=== PATIENT | female | born 1965 | race Caucasian/White ===

== ENCOUNTER 2017-03-13 23:46 | Emergency (ER) | payer OTHER ==
[~2017-03-13] VITALS: Ht 154.9 cm; Wt 63.5 kg
[2017-03-14 01:33] LABS: HEMATOCRIT 39.5 % (37.0-47.0); HEMOGLOBIN 13.6 gm/dL (12.0-15.0); MCH 28.7 pg (26.0-34.0); MCHC 34.5 g/dL (28.0-37.0); MCV 83.1 fL (80.0-100.0); RBC 4.76 mil/uL (4.20-5.00); RDW 13.2 % (10.5-14.5); WBC 6.9 thou/uL (4.0-11.0)
[2017-03-14 01:40] LABS: CALCIUM 9.6 mg/dL (8.5-10.1); CREATININE 0.6 mg/dL (0.6-1.0); POTASSIUM 4.1 mmol/L (3.5-5.1)
[2017-03-14] MEDS ORDERED: NORCO 5-325 TA1 EACH PO (01:56)
[2017-03-14] MEDS ORDERED: NAPROSYN500 MG PO (01:56)
[2017-03-14 02:52] VITALS: BP 150/69
== END 2017-03-14 03:25 | disposition home or self-care (01) ==
LOC: ER 23:46
PROVIDERS: Emergency Medicine
DX: S86.912A Strain of unspecified muscle(s) and tendon(s) at lower leg level, left leg, initial encounter (principal); X58.XXXA Exposure to other specified factors, initial encounter; Y93.01 Activity, walking, marching and hiking; Y92.89 Other specified places as the place of occurrence of the external cause; Y99.9 Unspecified external cause status

== ENCOUNTER 2019-10-12 22:08 | Inpatient (IN) | payer BC, OTHER ==
[~2019-10-12] VITALS: Ht 152.4 cm; Wt 57.2 kg
[~2019-10-12 22:08] MED LIST: NAPROSYN500 MG PO; NORCO 5-325 TA1 EACH PO
[2019-10-12 22:09] VITALS: BP 122/54
[2019-10-12 22:59] LABS: ABSOLUTE NEUTROPHILS 11.3 thou/uL (1.4-8.2); BASOPHILS 0.1 % (0.0-2.0); HEMATOCRIT 51.2 % (37.0-47.0); HEMOGLOBIN 16.9 gm/dL (12.0-15.0); LYMPHOCYTES 6.1 % (24.0-44.0); MCH 28.2 pg (26.0-34.0); MCV 85.5 fL (80.0-100.0); MONOCYTES 5.9 % (1.0-8.0); PLATELET COUNT 283 thou/uL (150-400); POLYS 87.9 % (36.0-66.0); RBC 5.99 mil/uL (4.20-5.00); RDW 13.1 % (10.5-14.5); WBC 12.8 thou/uL (4.0-11.0)
[2019-10-12 23:07] LABS: URINE BLOOD 1+ (Negative); URINE CLARITY SL CLOUDY; URINE COLOR YELLOW; URINE GLUCOSE-RANDOM* 3+ (Negative); URINE KETONES 3+ (Negative); URINE LEUKOCYTES-REFLEX NEGATIVE (Negative); URINE NITRITE-REFLEX NEGATIVE (Negative); URINE PROTEIN (DIPSTICK) 1+ (Negative); URINE SPECIFIC GRAVITY >= 1.030 (1.005-1.035); URINE UROBILINOGEN 0.2 E.U./dl (0.2-1.0)
[2019-10-12 23:15] LABS: ALBUMIN 3.7 g/dL (3.4-5.0); CALCIUM 10.4 mg/dL (8.5-10.1); CREATININE 1.3 mg/dL (0.6-1.0); POTASSIUM 5.5 mmol/L (3.5-5.1); TOTAL BILIRUBIN 0.7 mg/dL (<0.1-1.0); TOTAL PROTEIN 8.2 g/dL (6.4-8.2)
[2019-10-12 23:18] LABS: ICTOTEST (BILI CONFIRMATORY) Negative (Negative); URINE BILIRUBIN NEGATIVE (Negative)
[2019-10-12 23:19] LABS: CRYSTALS None Seen /LPF (None Seen); HYALINE CASTS 0-3 Few /LPF (None Seen); MUCUS 0-3 Light strn/LPF (None Seen); SQUAMOUS None Seen /LPF (0-3); URINE RBC None Seen /HPF (0-2); URINE WBC-REFLEX None Seen /HPF (0-5)
[2019-10-12 23:20] LABS: AMORPHOUS URATES Many /LPF (None Seen)
[2019-10-13] VITALS (14 sets, daily range): BP systolic 93–152; BP diastolic 46–66
[2019-10-13 00:40] LABS: BE(vivo) -25.1 mmol/L (-2 to +3); HCO3 5.6 mmol/L (22.0-26.0); PCO2 VENOUS 25.1 mmHg (41.0-51.0)
[2019-10-13 01:10] LABS: MAGNESIUM 2.2 mg/dL (1.8-2.4)
[2019-10-13 03:25] LABS: BE(vivo) -14.4 mmol/L (-2 to +3); HCO3 11.5 mmol/L (22.0-26.0); PCO2 VENOUS 27.7 mmHg (41.0-51.0); PO2 VENOUS 58.8 mmHg (35.0-45.0)
[2019-10-13 05:28] LABS: HEMATOCRIT 36.9 % (37.0-47.0); MCH 28.5 pg (26.0-34.0); MCHC 34.3 g/dL (28.0-37.0); MCV 83.1 fL (80.0-100.0); RBC 4.44 mil/uL (4.20-5.00); RDW 13.1 % (10.5-14.5); WBC 8.4 thou/uL (4.0-11.0)
[2019-10-13 05:35] LABS: HEMOGLOBIN 12.7 gm/dL (12.0-15.0)
[2019-10-13 05:43] LABS: CALCIUM 8.6 mg/dL (8.5-10.1); CREATININE 0.7 mg/dL (0.6-1.0)
[2019-10-13 05:58] LABS: POTASSIUM 3.7 mmol/L (3.5-5.1)
--- NOTE | 2019-10-13 07:44 | NUR ---
ASSUME CARE 0430. PT IS IN AFIB AND TACHYCARDIC. BP RUNS SOFT AND BLOOD SUGAR RUNS HIGH. A/O X 4, DENIES ANY PAIN. TOLERATES ACTIVITY WELL. ASSESSMENT CHARTED. PROGRESSING MODERATELY WITH POC. CARDIZEM BOLUS GIVEN WITH CARDIZEM DRIP STARTED IN ED. PT STILL IN AFLUTTER WITH RATE REGULATING. PLAN IS TO CONTINUE TO HYDRATE PATIENT AND STABILIZE SODIUM AND BICAN LEVELS. ALSO, CONTINUE WITH CARDIZEM DRIP AND MONITOR HEART RATE AND RYTHM. TAYLER CONTINUE TO MONITOR AND FOLLOW WITH POC
[2019-10-13 09:36] LABS: ALBUMIN 2.4 g/dL (3.4-5.0); MAGNESIUM 1.4 mg/dL (1.8-2.4); PHOSPHORUS 2.3 mg/dL (2.5-4.9)
--- NOTE | 2019-10-13 10:01 | EKG ---
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
--- NOTE | 2019-10-13 10:03 | EKG ---
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
--- NOTE | 2019-10-13 10:03 | EKG ---
[facility] [place] [address] ELECTROCARDIOGRAM REPORT Name: TERESITA ABRAMS Room #: 241-P ADM IN M.R.#: [id number] Admission: 10/13/19 Attend Phys: Winston Flores MD Discharge: Date of : 61 Report #: [id number] THIS REPORT FOR: cc: CHAI - Tanya family physician/PCP CHAI - No family physician/PCP Brent Ma MD [facility] THIS REPORT FOR: //name// [facility] ED Test Date: 2019-10-13 Test Time: 01:56:09 Pat Name: TERESITA ABRAMS Department: Room: 241 Gender: F Software Lead: DEMETRI : 1965 Requested By: Chito Ashton Order Number: [id number] MD: Brent Ma Measurements Intervals [place] Rate: 132 P: 267 [place]: 169 QRS: 49 QRSD: 115 T: 68 QT: 330 QTc: 489 Interpretive Statements Atrial flutter with a rapid ventricular response No previous ECG available for comparison Electronically Signed On 10-13-2019 10:01:50 CDT by Brent Ma [email or web address] <ELECTRONICALLY SIGNED> By: Brent Ma MD, FAC 10/13/19 1001 0156 0156 Brent Ma MD, [facility] /EPI
[2019-10-13 11:02] LABS: CALCIUM 7.7 mg/dL (8.5-10.1); CREATININE 0.7 mg/dL (0.6-1.0)
[2019-10-13 11:06] LABS: POTASSIUM 2.7 mmol/L (3.5-5.1)
--- NOTE | 2019-10-13 13:48 | NUR ---
DKA PROTOCAL INIATED PER HOSPITAL POLICY AND PROTOCALS. ENDOCRINEOLOGY/CARDIOLOGY CONSULTED. ELECTROLYTE PROTOCAL INIATED FOR MAG/POTASSIUM REPLACEMENT. PT ATRIAL FLUTTER ON TELE MONITOR, CARDIOLOGY ORDERED DC OF IV DILTIAZEM, CHANGE TO PO.
[2019-10-13 14:11] LABS: CHOLESTEROL 106 mg/dL (<200); HDL CHOLESTEROL 25 mg/dL (>40); LDL CHOLESTEROL 61 mg/dL (<100); TC:HDL 4.2 Ratio (Not establshd); TRIGLYCERIDE 100 mg/dL (<150); VLDL 20 mg/dL (<40)
[2019-10-13 19:09] LABS: ALBUMIN 2.3 g/dL (3.4-5.0); CALCIUM 8.2 mg/dL (8.5-10.1); CREATININE 0.8 mg/dL (0.6-1.0); TOTAL BILIRUBIN 0.3 mg/dL (<0.1-1.0); TOTAL PROTEIN 5.1 g/dL (6.4-8.2)
[2019-10-13 19:11] LABS: POTASSIUM 2.9 mmol/L (3.5-5.1)
--- NOTE | 2019-10-13 19:34 | NUR ---
Pt laying in bed resting. No signs of distress. Denies pain or discomfort. Pt on insuline drip rate BS 205 insulin at 13unit/hr will continue to monitor and titrate.
--- NOTE | 2019-10-13 21:34 | NUR ---
Pt's blood sugar at this time is 116 able to turn off insulin drip will continue to monitor.
[2019-10-14] VITALS (20 sets, daily range): BP systolic 116–141; BP diastolic 47–65
--- NOTE | 2019-10-14 00:34 | NUR ---
Pt's blood sugar at this time is 224 restarted insulin drip. Pt responds to insulin titration well can benefit from sliding scale.
[2019-10-14 05:40] LABS: ABSOLUTE NEUTROPHILS 3.7 thou/uL (1.4-8.2); BASOPHILS 0.2 % (0.0-2.0); EOSINOPHILS 0.8 % (0.0-3.0); HEMATOCRIT 36.7 % (37.0-47.0); HEMOGLOBIN 12.5 gm/dL (12.0-15.0); LYMPHOCYTES 28.4 % (24.0-44.0); MCH 28.1 pg (26.0-34.0); MCHC 34.1 g/dL (28.0-37.0); MCV 82.7 fL (80.0-100.0); MONOCYTES 10.3 % (1.0-8.0); PLATELET COUNT 117 thou/uL (150-400); POLYS 60.3 % (36.0-66.0); RBC 4.44 mil/uL (4.20-5.00); RDW 13.4 % (10.5-14.5); WBC 6.1 thou/uL (4.0-11.0)
[2019-10-14 05:55] LABS: GLYCOHEMOGLOBIN (HGB A1C) 13.2 % (4.8-5.6)
[2019-10-14 06:01] LABS: ALBUMIN 2.1 g/dL (3.4-5.0); CALCIUM 8.4 mg/dL (8.5-10.1); CREATININE 0.5 mg/dL (0.6-1.0); PHOSPHORUS 1.2 mg/dL (2.5-4.9); POTASSIUM 3.9 mmol/L (3.5-5.1); TOTAL BILIRUBIN 0.8 mg/dL (<0.1-1.0); TOTAL PROTEIN 4.8 g/dL (6.4-8.2)
--- NOTE | 2019-10-14 06:19 | NUR ---
PER INFECTION CONTROL, PT CAN BE DC'D FROM ISOLATION.
--- NOTE | 2019-10-14 06:59 | NUR ---
Assessment and Interventions documented. Pt did well throughout the night. Denies pain or discomfort. On Insulin drip. Tolerated titrations well. Pt is ready for Sub Q insulin. Progressing toward goals.
--- NOTE | 2019-10-14 09:20 | HC ---
[facility] [place] [address] CONSULTATION Name: TERESITA ABRAMS Room #: 241-P ADM IN M.R.#: [id number] Admission: 10/13/19 Attend Phys: Winston Flores MD Discharge: Date of : 61 Report #: [id number] THIS REPORT FOR: cc: CHAI - No family physician/PCP CHAI - No family physician/PCP Brent Ma MD [facility] ~ CC: [facility] physician/PCP Winston Flores REASON FOR CONSULTATION: Atrial flutter. HISTORY OF PRESENT ILLNESS: The patient is a 54-year-old woman with a fairly limited past medical history. She presented with a 4-5 day history of nausea, vomiting, severe weakness and body aches. She was seen in the Emergency Department where she was diagnosed with DKA, diabetes is a new diagnosis for her. She was also in atrial flutter with 1:1 AV conduction. She was placed on intravenous Cardizem. She has had multiple metabolic abnormalities, which were in the process of being corrected. She is on an insulin drip with improvement in blood sugars. She denies chest pain, pressure or ischemic type symptoms. No heart failure symptoms including orthopnea, paroxysmal nocturnal dyspnea, or lower extremity edema. No history of palpitations. No symptoms referable to this atrial flutter even despite its fast ventricular response. ALLERGIES: No known drug allergies. MEDICATIONS: She takes no medicines on a regular basis. PAST MEDICAL HISTORY: Medical records have been reviewed. No significant hospitalizations, surgeries or illnesses. REVIEW OF SYSTEMS: All systems negative except as that noted above. PHYSICAL EXAMINATION: GENERAL: A pleasant woman who is alert, in no distress. VITAL SIGNS: Blood pressure is 107/90, heart rate of 100 and irregular, respirations unlabored at 18. She is afebrile. Oxygen saturations are 97%. HEENT: There are neither xanthelasma, subcutaneous xanthomata, oral mucosal or digital cyanosis or kyphoscoliosis present. CHEST: Clear to auscultation and percussion. CARDIAC: An irregularly irregular rhythm with normal S1, S2. No murmurs, gallops or rubs. ABDOMEN: Soft and nontender. EXTREMITIES: Without cyanosis, clubbing or edema. Radial pulses are 2+. NEUROLOGIC: She is alert with a nonfocal exam. LABORATORY DATA: Sodium is 134; potassium 2.7; creatinine 0.7; glucose initially was 484, it is now 210. Magnesium 1.4, alkaline phosphatase 293, SGPT [address] [address] CONSULTATION Name: TERESITA ABRAMS Room #: 241-P ADM IN R.#: [id number] Admission: 10/13/19 Attend Phys: Winston Flores MD Discharge: Date of : 61 Report #: [id number]. Troponin 0. White count 8.4, hemoglobin 12, hematocrit 36, platelet count 150. Chest x-ray is normal. IMPRESSION: 1. Atrial flutter with 1:1 atrioventricular conduction, asymptomatic and of unknown chronicity. 2. Severe anion gap acidosis. 3. Diabetic ketoacidosis. 4. Diabetes, newly diagnosed. 5. Dyslipidemia. 6. Multiple metabolic abnormalities in the process of being corrected. 7. Hypercoagulable. RECOMMENDATIONS: 1. Change IV to oral Cardizem. 2. Echocardiogram with Doppler, thyroid function studies. 3. With a CHADS-VASc score of 2, I recommend long-term anticoagulant therapy. No contraindications to its use. 3. For now, a rate control strategy for atrial flutter. At some point, I would consider either cardioversion with antiarrhythmic therapy or ablation. I have discussed these issues with the patient in detail. Thank you for asking me to participate in her care. <ELECTRONICALLY SIGNED> By: Brent Ma MD, [facility] 10/14/1920 1245 1929 Brent Ma MD, FAC /nt
--- NOTE | 2019-10-14 10:30 | EKG ---
[facility] [place] [address] ELECTROCARDIOGRAM REPORT Name: TERESITA ABRAMS Room #: 241-P ADM IN M.R.#: [id number] Admission: 10/13/19 Attend Phys: Winston Flroes MD Discharge: Date of : 61 Report #: [id number] THIS REPORT FOR: cc: FAM - No family physician/PCP FAM - No family physician/PCP Brent Ma MD [facility] THIS REPORT FOR: //name// 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
--- NOTE | 2019-10-14 11:04 | NUR ---
ASSESSMENTS AND INTERVENTIONS DOCCUMENTED. PATIENT REMIANS ON INSULIN GTT. DR. CHASE ROUNDING ON PATIENT. PATIENT UP AMBULATING AD BRIAN WITH ASSIST BACK TO BED. PATIENT'S HEART RATE GETTING HIGH 150'S.
--- NOTE | 2019-10-14 12:09 | HC ---
[facility] [place] [address] CONSULTATION Name: TERESITA ABRAMS Room #: 241-P ADM IN M.R.#: [id number] Admission: 10/13/19 Attend Phys: Winston Flores MD Discharge: Date of : 61 Report #: [id number] THIS REPORT FOR: cc: CHAI Martínez family physician/PCP CHAI Martínez family physician/PCP Jean Pierre Nichols MD ~ CC: CHAI physician/PCP Winston Flores DATE OF SERVICE: 10/13/2019 CONSULTING PHYSICIAN: Dr. Michael. REASON FOR CONSULTATION: DKA, new onset diabetes mellitus. HISTORY OF PRESENT ILLNESS: This is a 54-year-old female patient whose medical background is rather unremarkable. The patient presented to the Emergency Department yesterday with complaints of progressive weakness, fatigue, tiredness, over the 5 days preceding her presentation. Moreover, she has experienced multiple bouts of nausea and vomiting over the 24-48 hours prior to her presentation. The patient otherwise has not experienced fever, chills, chest pain or particular issues with shortness of breath. On arrival, the patient was found to have metabolic acidosis and hyperglycemia and was admitted for further care and monitoring for the issue of diabetic ketoacidosis. On further discussions, the patient denies having had any prior knowledge of hyperglycemia and has never needed to be on antidiabetic therapy in the past. She is not aware of a family history of diabetes mellitus. REVIEW OF SYSTEMS: CONSTITUTIONAL: Fatigue, tiredness, but not fever or chills. HEENT: Negative for sore throat, sinus pain or ear drainage. PULMONARY: No shortness of breath, cough or hemoptysis. CARDIAC: Heart flutter, lightheadedness, presyncope, but not chest pain or lower extremity edema. GASTROINTESTINAL: Abdominal discomfort, nausea and vomiting for the 48 hours preceding her presentation, but no hematemesis or melena. NEUROLOGY: Lightheadedness, dizziness, but not loss of consciousness, seizure activity or severe frequent headaches. PSYCHIATRIC: Negative for delusions or hallucinations. SKIN: Negative for rash, ulceration or other major abnormalities. Otherwise, review of systems noncontributory other than those mentioned in HPI. PAST MEDICAL HISTORY: Noncontributory, unremarkable. OUTPATIENT MEDICATIONS: None. [address] [address] CONSULTATION Name: TERESITA ABRAMS Room #: [facility] IN .R.#: [id number] Admission: 10/13/19 Attend Phys: Winston Flores MD Discharge: Date of : 61 Report #: [id number] ALLERGIES: No known drug allergies. FAMILY HISTORY: Unremarkable. SOCIAL HISTORY: The patient works in [employer]. She has 4 children and 4 grandchildren. She smokes half a pack per day. Denies use of alcohol or illicit drugs. PHYSICAL EXAMINATION: GENERAL: Pleasant female patient who is not in apparent pain or distress. VITAL SIGNS: Blood pressure is 140/59 mmHg, heart rate is 88 beats per minute, respirations 28 per minute, temperature 36.5 degrees. CONSTITUTIONAL: The patient is lying in bed, seems comfortable, not in apparent distress. HEENT: Anicteric sclerae. Intact extraocular motions. NECK: Supple, without JVD, carotid bruits or lymphadenopathy. I do not appreciate thyromegaly. CHEST: Clear to auscultation with good air entry bilaterally. No wheeze or crackles with percussion noted over both lung centeno. HEART: Regular rate and rhythm without murmurs, rubs or gallops. ABDOMEN: Soft, lax. No guarding. Active bowel sounds. EXTREMITIES: Lower extremity exam is negative for ankle edema. The patient has good pedal pulses bilaterally. NEUROLOGIC: Awake, alert and oriented to time, place and person. The remainder of her examination is nonfocal. PSYCH: Interactive, pleasant. Normal mood and affect. LABORATORY DATA: Blood glucose on arrival was 308, had declined to 205, then 210 and finally at 179 mg/dL. Sodium was 134, potassium 2.7 this morning, chloride 102, CO2 15, was at 5 on arrival, anion gap was 17 this morning, but was 30 on arrival, creatinine 0.7, BUN 17, glucose was at a high of 484 on arrival. AST 27, lipase 173, total bilirubin 0.7, calcium 7.7, phosphorus 2.3, magnesium 1.3, alkaline phosphatase 293, ALT 34, total protein 8.2, albumin 2.4, EGFR 87. Lactic acid 1.5, was 2.9 on arrival. Troponin is negative. White blood count 8.4, hemoglobin 12.7, hematocrit 36.9, platelets 150. Hemoglobin A1c was done and is pending. TSH was undetectable. ASSESSMENT AND PLAN: 1. Diabetic ketoacidosis. As noted above, the patient's presentation is consistent with that of diabetic ketoacidosis based on her documented severe hyperglycemia as well as that of metabolic acidosis and wide anion gap. The patient was appropriately managed with intravenous insulin and intravenous fluids and has shown progressive improvement in her metabolic abnormalities with her blood glucose values dropping under 180 mg/dL as well as her anion gap [address] [place] [address] CONSULTATION Name: TERESITA ABRAMS Room #: 241-P ADM IN Jose#: [id number] Admission: 10/13/19 Attend Phys: Winston Flores MD Discharge: Date of : 61 Report #: [id number] closing considerably compared to her presentation. I would like the patient to maintain the current management until her metabolic abnormalities have effectively reversed until she demonstrates a consistent ability to tolerate and maintain p.o. intake after which she will be switched off IV insulin therapy to a regimen that is based on her recorded intravenous insulin needs at that time. 2. Type 2 diabetes mellitus. The patient's presentation is diagnostic of diabetes mellitus which she has never been found to have in the past. The greater possibility would be that of type 2 diabetes mellitus and I will obtain a hemoglobin A1c to better assess her overall control over the past several months. However, since this is a new diagnosis to her, I will also request serology studies to rule out type 1 diabetes mellitus with certainty. The patient was counseled about this finding, the pathogenesis of diabetes mellitus, and its implications. A definitive regimen will be formulated based on her needs and overall state going forward. 3. Hyperthyroidism. The patient's TSH was significantly suppressed. Whether this represents an aspect of her overall sickness and instability is to be determined. I will obtain free T4, free T3 and thyroid serology studies as well to better assess the possibility of hyperthyroidism. Further management will be based on these findings. 4. Hypokalemia. The patient developed hypokalemia upon the anabaptism of normal glycemia and the reversal of dehydration, metabolic abnormalities and salon receptionist of insulin therapy. Potassium replacement is as per the primary hospital team. I certainly appreciate this consultation by Dr. Michael. <ELECTRONICALLY SIGNED> By: Jean Pierre Nichols MD 10/14/19 1209 1347 2216 Jean Pierre Nichols MD /nt
[2019-10-15] VITALS (13 sets, daily range): BP systolic 104–144; BP diastolic 47–70
--- NOTE | 2019-10-15 | NUR ---
ASSUMEDD CARE OF PT. AWAKE AND ALERT UP TO TOILET. VOIDING DENIES PAIN 'NOR DISCOMFORT.
[2019-10-15 06:00] LABS: ABSOLUTE NEUTROPHILS 1.6 thou/uL (1.4-8.2); BASOPHILS 0.6 % (0.0-2.0); EOSINOPHILS 1.9 % (0.0-3.0); HEMATOCRIT 35.1 % (37.0-47.0); HEMOGLOBIN 12.2 gm/dL (12.0-15.0); LYMPHOCYTES 55.3 % (24.0-44.0); MCH 28.5 pg (26.0-34.0); MCHC 34.9 g/dL (28.0-37.0); MCV 81.7 fL (80.0-100.0); PLATELET COUNT 94 thou/uL (150-400); POLYS 34.2 % (36.0-66.0); RBC 4.29 mil/uL (4.20-5.00); RDW 13.5 % (10.5-14.5); WBC 4.6 thou/uL (4.0-11.0)
--- NOTE | 2019-10-15 06:00 | NUR ---
PT SLEPT MOST OF NIGHT. REMAINS A CCU OVERFLOW. IN GOOD SPIRITS. WILL CONT TO MONITOR.
[2019-10-15 06:29] LABS: CALCIUM 7.9 mg/dL (8.5-10.1); CREATININE 0.3 mg/dL (0.6-1.0); MAGNESIUM 1.7 mg/dL (1.8-2.4); POTASSIUM 4.2 mmol/L (3.5-5.1); TOTAL BILIRUBIN 0.7 mg/dL (<0.1-1.0); TOTAL PROTEIN 4.4 g/dL (6.4-8.2)
[2019-10-15] MEDS ORDERED: LIPITOR40 MG PO (08:19)
[2019-10-15] MEDS ORDERED: CARDIZEM CD120 MG PO (08:19)
[2019-10-15] MEDS ORDERED: XARELTO20 MG PO (08:19)
--- NOTE | 2019-10-15 08:48 | EKG ---
[facility] [place] [address] ELECTROCARDIOGRAM REPORT Name: TERESITA ABRAMS Room #: 241-P ADM IN M.R.#: [id number] Admission: 10/13/19 Attend Phys: Ashok Castrejon MD Discharge: Date of : 61 Report #: [id number] THIS REPORT FOR: cc: CHAI - Tanya family physician/PCP CHAI - Tanya family physician/PCP Brent Ma MD [facility] THIS REPORT FOR: //name// [facility] Test Date: 2019-10-15 Test Time: 07:30:24 Pat Name: TERESITA ABRAMS Department: Room: 241 Gender: F Acls Nurse: CHERI : 1965 Requested By: Brent Ma Order Number: [id number] MD: Brent Ma Measurements Intervals [place] Rate: 87 P: OR: QRS: 43 QRSD: 101 T: 54 QT: 372 QTc: 448 Interpretive Statements Atrial flutter Otherwise no significant abnormality Compared to ECG 10/14/2019 10:26:14 No significant change was found Electronically Signed On 10-15-2019 8:46:34 CDT by Brent Ma [email or web address] <ELECTRONICALLY SIGNED> By: Brent Ma MD, [facility] 10/15/19 0846 9 9 Brent Ma MD, [facility] /EPI
--- NOTE | 2019-10-15 09:12 | 2DMMODE ---
[facility] [place] [address] 2 D/M-MODE ECHOCARDIOGRAM Name: TERESITA ABRAMS Room #: 241-P ADM IN M.R.#: [id number] Admission: 10/13/19 Attend Phys: Ashok Castrejon MD Discharge: Date of : 61 Report #: [id number] THIS REPORT FOR: cc: CHAI - No family physician/PCP CHAI - No family physician/PCP Brent Ma MD [facility] ~ APPROVED REPORT Study performed: 10/15/2019 08:29:07 EXAM: Comprehensive 2D, Doppler, and color-flow Echocardiogram Patient Location: ICU Room #: 241 Status: routine BSA: 1.54 HR: 87 bpm BP: 107/58 mmHg Rhythm: Atrial Flutter Other Information Study Quality: Good Indications New onset of Aflutter. 2D Dimensions RVDd: 31.95 mm IVSd: 9.64 (7-11mm) LVOT Diam: 20.36 (18-24mm) LVDd: 45.56 mm PWd: 9.61 (7-11mm) Ascending Ao: 29.57 (22-36mm) LVDs: 33.54 (25-40mm) Aortic Root: 34.38 mm Volumes Left Atrial Volume (Systole) Single Plane 4CH: 41.09 mL Single Plane 2CH: 37.46 mL LA ESV Index: 29.00 mL/m2 Aortic Valve AoV Peak Ben.: 1.20 m/s AO Peak Gr.: 5.80 mmHg LVOT Max P.87 mmHg LVOT Max V: 0.98 m/s ELVA Vmax: 2.66 cm2 [facility] [address] [place] [address] 2 D/M-MODE ECHOCARDIOGRAM Name: TERESITA ABRAMS Room #: 241-P [facility]#: [id number] Admission: 10/13/19 Attend Phys: Ashok Castrejon MD Discharge: Date of : 61 Report #: [id number] Mitral Valve MV Decel. Time: 169.27 ms MV E Max Ben.: 1.21 m/s Pulmonary Valve PV Peak Ben.: 1.04 m/s PV Peak Gr.: 4.29 mmHg Tricuspid Valve TR Peak Ben.: 2.72 m/s RAP Estimate: 10.00 mmHg TR Peak Gr.: 30.00 mmHg PA Pressure: 40.00 mmHg Left Ventricle The left ventricle is normal size. There is normal LV segmental wall motion. There is normal left ventricular wall thickness. Left ventricular systolic function is normal. LVEF is 55%. This study is not technically sufficient to allow evaluation of the LV diastolic function due to atrial flutter. Right Ventricle The right ventricle is normal size. The right ventricular systolic function is normal. Atria The left atrium size is normal. The right atrium size is normal. Aortic Valve The aortic valve is normal in structure. No aortic regurgitation is present. There is no aortic valvular stenosis. Mitral Valve The mitral valve is normal in structure. Mild mitral regurgitation. No evidence of mitral valve stenosis. Tricuspid Valve The tricuspid valve is normal in structure. Mild to moderate tricuspid regurgitation. Estimated PAP is 40-45mmHg. Pulmonic Valve The pulmonary valve is normal in structure. Mild to moderate pulmonic regurgitation. Great Vessels The aortic root is normal in size. The ascending aorta is normal in size. IVC is dilated and collapses <50% with [facility] [address] [place] [address] 2 D/M-MODE ECHOCARDIOGRAM Name: TERESITA ABRAMS Room #: 241-P [facility] IN ..#: [id number] Admission: 10/13/19 Attend Phys: Ashok Castrejon MD Discharge: Date of : 61 Report #: [id number] inspiration. Pericardium There is no pericardial effusion. Left and right pleural effusions noted. <Conclusion> Left ventricular systolic function is normal. There is normal LV segmental wall motion. LVEF is 55%. The aortic valve is normal in structure. No aortic regurgitation or stenosis The mitral valve is normal in structure. Mild mitral regurgitation. Mild to moderate tricuspid regurgitation. Estimated pulmonary artery pressure of 40-45mmHg. There is no pericardial effusion. <ELECTRONICALLY SIGNED> By: Brent Ma MD, [facility] 10/15/19909 9 9 Brent Ma MD, [facility] /INF
--- NOTE | 2019-10-15 14:15 | NUR ---
chart review, cm consult for dcp and new dm. cm visited with cookie via phone call. she is a & o , pleasant and able to make her needs know. intro to dcp. education on [employer] DM kits approx $40 + dollars, education on finding pcp. provided number to [facility] and pt going to call to see if they in net work with her insurance and she going to call endo here " i want to keep same dr had here for DM if that is possible"/cookie. pt reported " live home with family and sig other. independent. no dme equip. 3 steps to enter then everything is on main level. 15 steps with handrail to basement. going to use [employer] [address] and [place] for dm supplies and medication. "cookie. will cont following as needed for dc needs.
[2019-10-15 16:52] LABS: URINE CREATININE-RANDOM* 25.1 mg/dL
--- NOTE | 2019-10-15 18:54 | NUR ---
PATIENT REMAINED IN AFLUTTER THIS SHIFT. BLOOD GLUCOSE MONITORED. PATIENT EDUCATED ON SELF ADMINISTRATION OF INSULIN, GAVE TO HERSELF 2X TODAY. UP TO BEDSIDE COMMODE WITH STB ASSIST. DENIES PAIN, ROOM AIR. PATIENT PROGRESSING TOWARDS GOALS FOR DISCHARGE.
[2019-10-16 04:53] VITALS: BP 131/60
--- NOTE | 2019-10-16 06:00 | NUR ---
pt awake and alert. slept most of night. remains in aflutter. denies pain nor discomfort. lungs clear. up to toilet voiding. possible discharge to home today. a very delightful little lady.
[2019-10-16 06:07] LABS: HEMATOCRIT 34.7 % (37.0-47.0); HEMOGLOBIN 11.9 gm/dL (12.0-15.0); MCH 28.4 pg (26.0-34.0); MCHC 34.3 g/dL (28.0-37.0); RBC 4.18 mil/uL (4.20-5.00); RDW 13.5 % (10.5-14.5); WBC 4.7 thou/uL (4.0-11.0)
[2019-10-16 06:26] LABS: CALCIUM 8.3 mg/dL (8.5-10.1); CREATININE 0.5 mg/dL (0.6-1.0); POTASSIUM 3.8 mmol/L (3.5-5.1)
[2019-10-16 08:19] VITALS: BP 140/67
[2019-10-16 12:13] VITALS: BP 129/63
--- NOTE | 2019-10-16 12:18 | NUR ---
ASSUMED CARE @ 0700 10/16/19, PT ASSESSMENTS AND VSS COMPLETE PER CC-TELE ORDERS. DR CHASE HERE TO ROUND THIS AM, NO NEW ORDERS RECIEVED. DR ORTIZ AND [employer] MACHINE COLLECTOR SUPERVISOR FROM CARDIOLOGY HERE TO ROUND, PRESCRIPTIONS HAND WRITTEN AND GIVEN DIRECTLY TO PT. DR GIBSON HERE THIS AFTERNOON TO ROUND, PT EDUCATED ON NEW DX OF DIABETES AND MEDICATION PLAN HE RECCOMMENDS, PRESCRIPTIONS HAND WRITTEN WELL AND GIVEN TO PT. RN LOOKS AT ALL THE MEDICATION PRESCRIBED AND INFORMATION FOR ALL THE MEDICATIONS ARE PRINTED OUT AND GIVEN TO PT. DR CHASE CALLED TO INFORM THAT PT IS SET TO BE DISCHARGED FROM A CARDIOLOGY AND ENDOCRINOLOGY STAND POINT, HE COMMUNICATES THAT RN SHOULD EXPECT DISCHARGE ORDERS SOON.
[2019-10-16] MEDS ORDERED: LANTUS SUBQ (12:32)
[2019-10-16] MEDS ORDERED: HUMALOG100 UNIT/1 SUBQ ×2 (12:32→12:33)
[2019-10-16] MEDS ORDERED: METHIMAZOLE10 MG PO (12:33)
[2019-10-16] MEDS ORDERED: KEFLEX500 M1 PO (12:33)
[2019-10-16 13:01] VITALS: BP 129/63
[2019-10-16 15:08] LABS: THYROID STIMULATING IG 5.08 IU/L (0.00-0.55)
--- NOTE | 2019-10-16 16:56 | NUR ---
DISCHARGE NOTE: SW reviewed chart and spoke with nursing and attending physician. Pt is medically stable for discharge home today. Pt to obtain DM medications/supplies at [facility]. Pt's family provided transportation home. No additional SW needs identified at this time, but is available to assist should needs arise.
== END 2019-10-16 13:20 | disposition home or self-care (01) | DRG 871 ==
LOC: ER 22:08 → EROBS 10-13 00:20 → ICU 10-13 00:20
PROVIDERS: Emergency Medicine; Internal Medicine; Nurse Practitioner Family; ADMIT Hospitalist
DX: A41.9 Sepsis, unspecified organism (principal); E11.10 Type 2 diabetes mellitus with ketoacidosis without coma; N39.0 Urinary tract infection, site not specified; I48.92 Unspecified atrial flutter; D68.59 Other primary thrombophilia; E87.1 Hypo-osmolality and hyponatremia; N17.9 Acute kidney failure, unspecified; E78.5 Hyperlipidemia, unspecified; E03.9 Hypothyroidism, unspecified; E87.6 Hypokalemia; F17.210 Nicotine dependence, cigarettes, uncomplicated; E77.8 Other disorders of glycoprotein metabolism; Z20.828 Contact with and (suspected) exposure to other viral communicable diseases
CPT/HCPCS: 10078; 10203